=== PATIENT | male | born 1970 | race Caucasian/White ===

== ENCOUNTER 2018-09-04 13:18 | Emergency (ER) | payer OTHER ==
[~2018-09-04] VITALS: Ht 190.5 cm; Wt 81.6 kg
[~2018-09-04 13:18] MED LIST: AMOXICILLIN500 MG PO; BUSPAR15 MG PO; CLINDAMYCIN HC300 MG PO; FLEXERIL5 MG PO; GEODON20 MG PO; HYDROCODONE BIT1 T11 PO; HYDROXYZINE PAM50 MG PO; MEDROL DOSEPAK4 MG PO; MOTRIN800 MG PO; NAPROSYN500 MG PO; OXYCOD/APAP TAB 5-3; PEPCID20 MG PO; PHENERGAN W/ DE30 ML PO; PREDNICOT10 MG PO; PREDNISONE10 MG PO; PREDNISONE50 MG PO; PROAIR HFA0.09 MG/AC INH; TRAZADONE HYDR100 MG PO; TYLENOL325 M1 PO; ULTRAM50 MG PO; VIBRAMYCIN100 MG PO
[2018-09-04 13:20] VITALS: BP 151/93
[2018-09-04] MEDS ORDERED: PREDNISONE10 MG PO (13:41)
[2018-09-04] MEDS ORDERED: CHLORZOXAZONE500 M2 PO (13:41)
== END 2018-09-04 14:58 | disposition home or self-care (01) ==
LOC: ED 13:18
DX: S93.401A Sprain of unspecified ligament of right ankle, initial encounter (principal); R03.0 Elevated blood-pressure reading, without diagnosis of hypertension; R20.2 Paresthesia of skin; F17.200 Nicotine dependence, unspecified, uncomplicated; Z79.2 Long term (current) use of antibiotics; Z79.899 Other long term (current) drug therapy; X58.XXXA Exposure to other specified factors, initial encounter; Y93.89 Activity, other specified; Y92.89 Other specified places as the place of occurrence of the external cause; Y99.8 Other external cause status

== ENCOUNTER 2021-11-18 21:32 | Emergency (ER) | payer OTHER ==
[~2021-11-18] VITALS: Ht 190.5 cm; Wt 72.6 kg
[~2021-11-18 21:32] MED LIST changes: +CHLORZOXAZONE500 M2 PO
[2021-11-18 21:39] VITALS: BP 136/104
== END 2021-11-19 00:50 | disposition left against medical advice (07) ==
LOC: ED 21:32
DX: S05.02XA Injury of conjunctiva and corneal abrasion without foreign body, left eye, initial encounter (principal); S05.01XA Injury of conjunctiva and corneal abrasion without foreign body, right eye, initial encounter; F17.200 Nicotine dependence, unspecified, uncomplicated; Z90.89 Acquired absence of other organs; Y08.89XA Assault by other specified means, initial encounter; Y93.89 Activity, other specified; Y92.89 Other specified places as the place of occurrence of the external cause; Y99.8 Other external cause status

== ENCOUNTER 2022-03-11 20:54 | Emergency (ER) | payer OTHER ==
[2022-03-11 21:00] VITALS: BP 119/77
[2022-03-11] MEDS ORDERED: HYDROCODONE-AC1 EAC1 PO (23:09)
== END 2022-03-11 23:31 | disposition home or self-care (01) ==
LOC: ED 20:54
DX: S92.342A Displaced fracture of fourth metatarsal bone, left foot, initial encounter for closed fracture (principal); S92.335A Nondisplaced fracture of third metatarsal bone, left foot, initial encounter for closed fracture; Z90.89 Acquired absence of other organs; Z98.890 Other specified postprocedural states; V86.59XA Driver of other special all-terrain or other off-road motor vehicle injured in nontraffic accident, initial encounter; Y93.I9 Activity, other involving external motion; Y92.488 Other paved roadways as the place of occurrence of the external cause; Y99.8 Other external cause status

== ENCOUNTER 2022-04-26 18:55 | Emergency (ER) | payer OTHER ==
[~2022-04-26] VITALS: Ht 190.5 cm; Wt 77.1 kg
[~2022-04-26 18:55] MED LIST changes: +HYDROCODONE-AC1 EAC1 PO
[2022-04-26 19:10] VITALS: BP 140/82
[2022-04-26 19:56] LABS: BASO # 0.1 10*3/uL (0.0-0.1); BASO % 0.8 % (0.0-1.0); EOS # 0.2 10*3/uL (0.0-0.4); EOS % 1.7 % (1.0-4.0); HEMATOCRIT 50.5 % (42.0-52.0); LYMPH # 1.5 10*3/uL (1.3-4.4); LYMPH % 16.5 % (27.0-41.0); MEAN CELL VOLUME 93.3 fl (80.0-94.0); MEAN CORPUSCULAR HGB 31.1 pg (27.0-31.0); MEAN CORPUSCULAR HGB CONC 33.3 g/dl (33.0-37.0); MEAN PLATELET VOLUME 9.8 fl (9.6-12.3); MONO # 0.6 10*3/uL (0.1-1.0); NEUT # 6.6 10*3/uL (2.3-7.9); NEUT % 73.7 % (47.0-73.0); PLATELET COUNT AUTOMATED 270 10*3/uL (130-400); RED BLOOD COUNT 5.41 10*6/uL (4.50-5.90); RED CELL DISTRI WIDTH 13.5 % (0-14.5)
[2022-04-26 20:06] LABS: BILIRUBIN Negative (Negative); BLOOD Negative (Negative); CLARITY Clear (Clear); COLOR Yellow (Yellow); GLUCOSE Negative (Negative); KETONE 1+ (Negative); LEUKO ESTERASE Negative (Negative); NITRITE Negative (Negative); PH 6.5 (4.5-8.0)
[2022-04-26 20:14] LABS: ALKALINE PHOSPHATASE 97 U/L (45-117); BUN 17 mg/dl (7-24); CHLORIDE 109 mmol/L (98-107); CREATININE 0.82 mg/dL (0.70-1.30); POTASSIUM 3.6 mmol/L (3.5-5.1); SGOT/AST 11 IU/L (3-35); SGPT/ALT 17 U/L (12-78); SODIUM 142 mmol/L (136-145); TOTAL PROTEIN 7.7 gm/dL (6.4-8.2)
[2022-04-26 20:29] LABS: BACTERIA 1+; EPITHELIAL CELLS 0-2; MUCOUS 2+; WBC 0-2 wbc/hpf (0-5)
== END 2022-04-26 22:44 | disposition home or self-care (01) ==
LOC: ED 18:55
PROVIDERS: Nurse Practitioner Family
DX: S16.1XXA Strain of muscle, fascia and tendon at neck level, initial encounter (principal); S70.01XA Contusion of right hip, initial encounter; S09.90XA Unspecified injury of head, initial encounter; F17.200 Nicotine dependence, unspecified, uncomplicated; Z90.89 Acquired absence of other organs; V49.88XA Car occupant (driver) (passenger) injured in other specified transport accidents, initial encounter; Y93.89 Activity, other specified; Y92.413 State road as the place of occurrence of the external cause; Y99.9 Unspecified external cause status

== ENCOUNTER 2022-09-02 17:20 | Emergency (ER) | payer OTHER ==
[2022-09-02 17:44] VITALS: BP 152/81
== END 2022-09-02 19:29 | disposition left against medical advice (07) ==
LOC: ED 17:20
DX: Z53.21 Procedure and treatment not carried out due to patient leaving prior to being seen by health care provider (principal)

== ENCOUNTER 2023-06-30 12:59 | Emergency (ER) | payer OTHER ==
[~2023-06-30] VITALS: Ht 190.5 cm; Wt 72.6 kg
[2023-06-30 13:06] VITALS: BP 128/86
== END 2023-06-30 15:32 | disposition home or self-care (01) ==
LOC: ED 12:59
DX: M25.571 Pain in right ankle and joints of right foot (principal); Z90.89 Acquired absence of other organs; W20.8XXA Other cause of strike by thrown, projected or falling object, initial encounter; Y93.89 Activity, other specified; Y92.89 Other specified places as the place of occurrence of the external cause; Y99.8 Other external cause status